=== PATIENT | male | born 2005 | race Caucasian/White ===

== ENCOUNTER 2025-04-17 18:50 | Emergency (ER) | payer OTHER ==
[~2025-04-17] VITALS: Ht 180.3 cm; Wt 70.5 kg
[2025-04-17 19:03] VITALS: TEMP 98.3
[2025-04-17 19:45] VITALS: BP 135/71
[2025-04-17 20:50] VITALS: O2SAT 99
[2025-04-17 21:07] VITALS: O2SAT 98
== END 2025-04-17 21:36 | disposition home or self-care (01) ==
LOC: EDBD 18:50 → M ED 18:50
DX: S50.02XA Contusion of left elbow, initial encounter (principal); V49.40XA Driver injured in collision with unspecified motor vehicles in traffic accident, initial encounter; Y92.410 Unspecified street and highway as the place of occurrence of the external cause; Y93.89 Activity, other specified; Y99.9 Unspecified external cause status